=== PATIENT | male | born 1970 | race Caucasian/White ===

== ENCOUNTER 2017-06-11 08:05 | Emergency (ER) | payer SELFPAY ==
[~2017-06-11] VITALS: Ht 190.5 cm; Wt 129.3 kg
[2017-06-11] MEDS ORDERED: ASPirin 81 mg TAB PO ONE (09:00)
[2017-06-11 09:10] LABS: Basophils # (auto) 0.1 uL; Basophils % (auto) 0.7 % (0.0-2.0); CONDITION Y; Eosinophils # (auto) 0.3 uL; Eosinophils % (auto) 3.5 % (0.0-7.0); Hematocrit 43.8 % (41.0-53.0); Hemoglobin 15.2 g/dL (13.5-17.5); Lymphocytes # (auto) 2.2 uL; Lymphocytes % (auto) 25.2 % (10.0-50.0); Mean Corpuscular Hemoglobin 29.8 pg (28.0-32.0); Mean Corpuscular Hgb Conc. 34.7 g/dL (32.0-36.0); Mean Corpuscular Volume 85.7 fL (80.0-100.0); Monocytes # (auto) 0.4 uL; Monocytes % (auto) 5.1 % (0.0-12.0); Neutrophils # (auto) 5.8 uL; Neutrophils % (auto) 65.5 % (37.0-80.0); Platelet Count (auto) 206 10^3/uL (140-450); Red Cell Distribution Width 13.1 % (11.6-16.0); White Blood Cell 8.8 10^3/uL (4.4-10.8)
[2017-06-11 09:38] LABS: BUN/Creatinine Ratio 17.3; Calcium 8.4 mg/dL (8.5-10.1)
[2017-06-11 09:43] LABS: Bilirubin, Total 1.5 mg/dL (0.2-1.0); Total Protein 7.7 g/dL (6.4-8.2)
[2017-06-11 10:15] VITALS: BP 175/100
== END 2017-06-11 11:18 | disposition home or self-care (01) ==
LOC: ER 08:05
DX: R07.89 Other chest pain (principal); Z88.0 Allergy status to penicillin
CPT/HCPCS: 36415; 71010; 80053; 84484; 85025; 93005; 94761

== ENCOUNTER 2019-03-28 21:25 | Inpatient (IN) | payer OTHER ==
[~2019-03-28] VITALS: Ht 193 cm; Wt 137.1 kg
[2019-03-28 22:09] LABS: Basophils # (auto) 0 uL; Basophils % (auto) 0.6 % (0.0-2.0); Eosinophils # (auto) 0.2 uL; Eosinophils % (auto) 2.8 % (0.0-7.0); Hematocrit 41.9 % (41.0-53.0); Hemoglobin 14.8 g/dL (13.5-17.5); Lymphocytes # (auto) 1.5 uL; Lymphocytes % (auto) 17.7 % (10.0-50.0); Mean Corpuscular Hemoglobin 30.3 pg (28.0-32.0); Mean Corpuscular Hgb Conc. 35.4 g/dL (32.0-36.0); Mean Corpuscular Volume 85.6 fL (80.0-100.0); Monocytes # (auto) 0.6 uL; Monocytes % (auto) 6.6 % (0.0-12.0); Neutrophils # (auto) 6.3 uL; Neutrophils % (auto) 72.3 % (37.0-80.0); Nucleated Red Blood Cells % 0.3 %; Platelet Count (auto) 182 10^3/uL (140-450); Red Blood Cells 4.89 10^6/uL (4.5-5.90); Red Cell Distribution Width 13.7 % (11.8-14.3); White Blood Cell 8.7 10^3/uL (4.4-10.8)
[2019-03-28 22:26] LABS: Albumin 3.8 g/dL (3.4-5.0); BUN/Creatinine Ratio 15.1; Calcium 8.3 mg/dL (8.5-10.1); Potassium 3.7 mmol/L (3.5-5.1)
[2019-03-28 22:30] LABS: Bilirubin, Total 1.5 mg/dL (0.2-1.0); Total Protein 7.5 g/dL (6.4-8.2)
[2019-03-29] MEDS ORDERED: cloNIDine HCL 0.1 MG TAB PO ONE (03:15)
[2019-03-29] MEDS ORDERED: ENOXAPARIN SOD 60 MG/0.6 ML SYRINGE SC ONE (03:15)
[2019-03-29] MEDS ORDERED: TEMAZEPAM 15 MG CAP PO PRN (12:45)
[2019-03-29] MEDS ORDERED: MORPHINE SULF INJ 2 MG/ML SYRINGE 1ML IV PRN ×2 (12:45→19:45)
[2019-03-29] MEDS ORDERED: ACETAMINOPHEN 500 MG TAB PO PRN (12:45)
[2019-03-29] MEDS ORDERED: NITROGLYCERIN 0.4 MG SL TAB SL PRN ×2 (12:45→19:45)
[2019-03-29] MEDS ORDERED: PROMETHAZINE HCL 25 MG/ML 1ML IV PRN (12:45)
[2019-03-29] MEDS: SODIUM CHLORIDE 0.9% 1,000 ML IV SCH (16:27)
[2019-03-29 20:20] VITALS: BP 149/88
--- NOTE | 2019-03-29 20:20 | NUR ---
Telemetry admit from ER EULA KITCHEN admitted to Telemetry unit after SBAR received. Patient oriented to Ena Justin, primary RN, unit, room, bed, and unit policies regarding patient care and visiting hours. Patient now on continuous telemetry monitoring, tele box # [id number] and telemetry reading on arrival to unit is Sinus rhythm 65. Patient placed on bedside oxygen, weighed by bedscale and encouraged to call if they need something. All questions and concerns addressed, patient verbalized understanding. Note:
[2019-03-29 22:00] VITALS: BP 149/88
[2019-03-29] MEDS ORDERED: LISI-646 PO (23:17)
[2019-03-30] MEDS: SODIUM CHLORIDE 0.9% 1,000 ML IV SCH ×2 (02:49→15:17)
[2019-03-30 05:39] VITALS: BP 147/77
--- NOTE | 2019-03-30 07:30 | NUR ---
Opening Shift Note RECEIVED REPORT FROM NOC RN. Assumed care of patient, awake and alert. No S/S of distress/SOB or pain. BED IN LOWEST, LOCKED POSITION WITH SIDERAILS UP x2. Instructed on POC and to call for assist PRN, will continue to monitor for changes Q1hr and PRN.
[2019-03-30 08:20] VITALS: BP 161/87
[2019-03-30 08:53] VITALS: BP 161/87
[2019-03-30] MEDS ORDERED: ENOXAPARIN SOD 40 MG/0.4 ML SYRINGE SC SCH (10:00)
--- NOTE | 2019-03-30 10:20 | NUR ---
DR. ZAVALA AT BEDSIDE. NEW ORDERS RECEIVED. PATIENT TO BE NPO AFTER MIDNIGHT. CONSENTS FOR LEFT HEART CATHETERIZATION.
[2019-03-30] MEDS ORDERED: ENOXAPARIN SOD 120 MG/0.8 ML SYRINGE SC ONE (11:30)
[2019-03-30] MEDS: NITROGLYCERIN 0.2MG/HR TOPICAL PATCH TD SCH (11:52)
[2019-03-30] MEDS: ASPirin 81 mg TAB PO SCH (11:52)
[2019-03-30 12:16] VITALS: BP 149/76
[2019-03-30] MEDS: ENALAPRIL MALEATE 10 MG TAB PO SCH (12:39)
[2019-03-30 16:59] VITALS: BP 150/75
[2019-03-30 19:08] LABS: Alcohol, Urine < 3.0 mg/dL (0-5); Amphetamine Screen, Urine NEGATIVE (NEGATIVE); Barbiturate Scree,Urine NEGATIVE (NEGATIVE); Benzodiazephine Screen, Urine NEGATIVE (NEGATIVE); Cannabinoid Screen, Urine NEGATIVE (NEGATIVE); Cocaine Screen, Urine NEGATIVE (NEGATIVE); Opiate Scree,Urine NEGATIVE (NEGATIVE); Phencyclidine Screen, Urine NEGATIVE (NEGATIVE)
[2019-03-30] MEDS: traMADol HCL 50 MG TAB PO PRN (20:20)
[2019-03-30 22:00] VITALS: BP 152/82
[2019-03-31] MEDS: SODIUM CHLORIDE 0.9% 1,000 ML IV SCH ×2 (04:54→17:42)
[2019-03-31] MEDS: traMADol HCL 50 MG TAB PO PRN (04:59)
[2019-03-31 05:00] VITALS: BP 158/75
[2019-03-31 07:12] LABS: INR 1.01 (0.9-1.15)
[2019-03-31 08:00] VITALS: BP 157/89
[2019-03-31 08:45] VITALS: BP 157/89
[2019-03-31] MEDS ORDERED: fentaNYL CITRATE 100 MCG/2 ML VL IV ONE (09:15)
[2019-03-31] MEDS ORDERED: LIDOCAINE VISCOUS 2% 15ML UD MT ONE (09:15)
[2019-03-31] MEDS ORDERED: MIDAZOLAM HCL 5 MG/ML-1ML VIAL IV ONE (09:15)
[2019-03-31] MEDS: ENALAPRIL MALEATE 10 MG TAB PO SCH ×2 (09:16→12:04)
[2019-03-31] MEDS: ASPirin 81 mg TAB PO SCH (09:16)
[2019-03-31] MEDS: NITROGLYCERIN 0.2MG/HR TOPICAL PATCH TD SCH (09:17)
[2019-03-31] MEDS ORDERED: MIDAZOLAM HCL 1MG/1ML-2 ML VIAL ONE (09:44)
[2019-03-31] MEDS ORDERED: diphenhdrAMINE HCL 50 MG/1 ML VL ONE (09:57)
[2019-03-31] MEDS ORDERED: ANGIOMAX 250 MG VIAL IV ONE (10:13)
[2019-03-31] MEDS ORDERED: SODIUM CHL 0.9% 0 ML ONE (10:13)
[2019-03-31] MEDS ORDERED: NITROGLYCERIN 0.4MG/DOSE SPRAY 4.9GM ONE (10:14)
[2019-03-31] MEDS ORDERED: VERAPAMIL 2.5MG/ML INJ 2ML VIAL IV ONE (10:17)
[2019-03-31] MEDS ORDERED: hydrALAZINE HCL 20 MG/ML VL ONE (10:25)
--- NOTE | 2019-03-31 10:27 | NUR ---
I faxed clinical information to [facility] including MD progress notes, current vitals, current labs and xrays and current medication list.
[2019-03-31] MEDS ORDERED: HEPARIN SODIUM (PORCINE) 5000 UNITS/ML 1ML VIAL ONE (10:28)
[2019-03-31 12:30] VITALS: BP_SYST 125; BP_SYST 168; BP_DIAS 106; BP_DIAS 78
[2019-03-31 17:29] VITALS: BP 152/84
--- NOTE | 2019-03-31 19:30 | NUR ---
Opening Shift Note Assumed care of patient, awake and alert. No S/S of distress/SOB or pain. Insructed on POC and to callfor assist PRN, will continue to monitor for changes Q1hr and PRN. Family at bedside. Fall and safety precautions in place. Call light within reach.
[2019-03-31 22:00] VITALS: BP 147/92
[2019-04-01] MEDS ORDERED: ENALAPRIL MALEATE 2.5 MG TAB PO ONE (04:45)
--- NOTE | 2019-04-01 04:45 | NUR ---
HOSPITALIST Spoke with Regi Bobby NP regarding blood pressure. New orders received. Will input and carry out.
--- NOTE | 2019-04-01 05:06 | NUR ---
BLOOD PRESSURE Pt medicated with blood pressure medication as ordered one time and IV fluids stopped. Will recheck approximately 1hr.
[2019-04-01 05:11] VITALS: BP 174/96
[2019-04-01 06:05] VITALS: BP 163/97
--- NOTE | 2019-04-01 06:05 | NUR ---
BLOOD PRESSURE Pt's blood pressure was rechecked at this time, result was 163/97. Will inform day shift RN and recheck approximately 30 min.
--- NOTE | 2019-04-01 06:56 | NUR ---
ENDORSED CARE Report given to Jaylan Mobley RN to continue care. Informed him of pt's blood pressure and to follow up.
[2019-04-01] MEDS: SODIUM CHLORIDE 0.9% 1,000 ML IV SCH (07:17)
[2019-04-01 08:00] VITALS: BP 161/90
--- NOTE | 2019-04-01 08:23 | NUR ---
Faxed updated clinical information to [facility] including MD progress notes, LHC results, current labs, current vitals and current medication list.
[2019-04-01 09:00] VITALS: BP 161/90
[2019-04-01] MEDS: ENALAPRIL MALEATE 10 MG TAB PO SCH (09:33)
[2019-04-01] MEDS: NITROGLYCERIN 0.2MG/HR TOPICAL PATCH TD SCH (09:33)
[2019-04-01] MEDS: ASPirin 81 mg TAB PO SCH (09:33)
[2019-04-01] MEDS ORDERED: LISINOPRIL 20 MG TAB PO ONE (10:00)
[2019-04-01 10:59] VITALS: BP 161/90
--- NOTE | 2019-04-01 12:06 | NUR ---
PATIENT DISCHARGED HOME WITH FAMILY. ALL IV ACCESS DISCONTINUED. ALL DISCHARGE INSTRUCTIONS GIVEN. ALL DISCHARGE PAPERWORK SIGNED. STAFF SUBMARINE [employer] OFFICER RETURNED TO [facility].
== END 2019-04-01 12:10 | disposition home or self-care (01) | DRG 282 ==
LOC: EDUNIT# 21:25 → EDBD 21:25 → ER 21:31 → TELE 21:32 → TELE-CENTR 03-29 20:42
PROVIDERS: ADMIT Internal Medicine; ATTEND Family Medicine
PROC: 4A023N7 Measurement of Cardiac Sampling and Pressure, Left Heart, Percutaneous Approach (ICD-10-PCS; principal; 2019-03-31)
PROC: B2111ZZ Fluoroscopy of Multiple Coronary Arteries using Low Osmolar Contrast (ICD-10-PCS; 2019-03-31)
PROC: B24BZZ4 Ultrasonography of Heart with Aorta, Transesophageal (ICD-10-PCS; 2019-03-31)
DX: I21.4 Non-ST elevation (NSTEMI) myocardial infarction (principal); I10 Essential (primary) hypertension; E66.01 Morbid (severe) obesity due to excess calories; R00.1 Bradycardia, unspecified; I35.1 Nonrheumatic aortic (valve) insufficiency; Z88.0 Allergy status to penicillin; Z68.36 Body mass index [BMI] 36.0-36.9, adult; Z90.49 Acquired absence of other specified parts of digestive tract; Z79.899 Other long term (current) drug therapy
CPT/HCPCS: 36415; 71046; 80053; 80307; 82550; 83880; 84443; 84484; 85025; 85379; 85610; 85652; 85730; 93005; 93306; 93312; 94761; 96372; G0378; J2250